=== PATIENT | male | born 1985 | race African-American/Black ===

== ENCOUNTER 2021-04-05 21:14 | Emergency (ER) | payer SELFPAY ==
[2021-04-05] MEDS ORDERED: Morphine 4 MG/ML VIAL ONE (21:39)
[2021-04-05] MEDS ORDERED: predniSONE 20 MG TAB ONE (21:40)
== END 2021-04-05 21:54 | disposition home or self-care (01) ==
LOC: BURERS 21:14
DX: R07.89 Other chest pain (principal); M54.6 Pain in thoracic spine; I10 Essential (primary) hypertension; F17.210 Nicotine dependence, cigarettes, uncomplicated
CPT/HCPCS: 96372; 99283; J2270; J7512